=== PATIENT | female | born 1955 | race Caucasian/White ===

== ENCOUNTER 2020-11-06 10:40 | Emergency (ER) | payer OTHER, MEDICARE ==
[~2020-11-06] VITALS: Ht 170.2 cm; Wt 68.0 kg
[2020-11-06] MEDS ORDERED: MELOXICAM15 MG PO (12:57)
[2020-11-06] MEDS ORDERED: VALACYCLOVIR500 MG PO (12:57)
[2020-11-06] MEDS ORDERED: ATORVASTATIN CA10 MG PO (12:58)
[2020-11-06] MEDS ORDERED: ESOMEPRAZOLE MA40 MG PO (12:58)
[2020-11-06] MEDS ORDERED: SYNTHROID137 MC1 PO (12:59)
[2020-11-06] MEDS ORDERED: NORCO5 PO (14:06)
[2020-11-06 14:17] VITALS: BP 138/70
== END 2020-11-06 14:23 | disposition home or self-care (01) ==
LOC: ER 10:40
DX: S92.351A Displaced fracture of fifth metatarsal bone, right foot, initial encounter for closed fracture (principal); S82.64XA Nondisplaced fracture of lateral malleolus of right fibula, initial encounter for closed fracture; S92.322A Displaced fracture of second metatarsal bone, left foot, initial encounter for closed fracture; Z79.899 Other long term (current) drug therapy; W18.30XA Fall on same level, unspecified, initial encounter; Y93.89 Activity, other specified; Y92.89 Other specified places as the place of occurrence of the external cause; Y99.9 Unspecified external cause status